=== PATIENT | female | born 2000 | race Caucasian/White ===

== ENCOUNTER 2021-10-10 04:42 | Inpatient (IN) | payer BC ==
[2021-10-10] MEDS ORDERED: Water For Irrigation,Sterile 1,000 ML Container IRR PRN (04:46)
[2021-10-10] MEDS ORDERED: Ondansetron 4 MG/2 ML SDV IVPUSH PRN (04:46)
[2021-10-10] MEDS ORDERED: Carboprost Tromethamine 250 MCG/1 ML Amp IM PRN (04:46)
[2021-10-10] MEDS ORDERED: Methylergonovine 0.2 MG/1 ML Amp IM PRN (04:46)
[2021-10-10] MEDS ORDERED: Sodium Chloride 0.9% 20 ML SDV IV PRN (04:46)
[2021-10-10] MEDS ORDERED: Sodium Chloride 0.9% 2.5 ML Syringe FLUSH PRN (04:46)
[2021-10-10] MEDS ORDERED: Misoprostol 200 MCG Tab PO PRN (04:46)
[2021-10-10] MEDS ORDERED: Terbutaline 1 MG/ML SDV SUBCUT PRN (04:46)
[2021-10-10] MEDS ORDERED: Sodium Chloride 0.9% 10 ML Syringe FLUSH PRN (04:46)
[2021-10-10] MEDS ORDERED: Lidocaine 1% 50 ML MDV INJECT PRN (04:46)
[2021-10-10] MEDS ORDERED: Tranexamic Acid 1,000 MG in Sodium Chloride 0.9% 100 ML IV PRN (04:46)
[2021-10-10] MEDS ORDERED: Butorphanol 1 MG/ML SDV IVPUSH PRN (04:46)
[2021-10-10] MEDS ORDERED: Oxytocin/0.9 % Sodium Chloride 30 UNIT/500 ML BAG IV SCH ×2 (05:00)
[2021-10-10] MEDS: Lactated Ringers 1,000 ML IV SCH ×2 (05:26→13:30)
[2021-10-10] MEDS ORDERED: ePHEDrine 50 MG/ML SDV IVPUSH PRN ×2 (07:36)
[2021-10-10] MEDS ORDERED: Ropivacaine HCl/PF 400 MG in Premix Bag 1 BAG EPIDUR SCH (07:45)
[2021-10-10] MEDS ORDERED: Acetaminophen 500 MG Tab PO PRN (21:33)
[2021-10-10] MEDS ORDERED: Bisacodyl 10 MG Supp RECTAL PRN (21:33)
[2021-10-10] MEDS ORDERED: oxyCODONE 5 MG Tab PO PRN (21:33)
[2021-10-10] MEDS ORDERED: Witch Hazel Medicated Pads 40/Jar TOP PRN (21:33)
[2021-10-10] MEDS ORDERED: Benzocaine/Menthol 20%-0.5% Spray 78 GM Cannister TOP PRN (21:33)
[2021-10-10] MEDS ORDERED: Docusate Sodium 100 MG Cap PO PRN (21:33)
[2021-10-10] MEDS ORDERED: Ibuprofen 400 MG Tab PO PRN (21:33)
[2021-10-10] MEDS ORDERED: Lanolin 100% Cream 7 GM Tube TOP PRN (21:33)
[2021-10-11] MEDS: Ibuprofen 800 MG Tab PO PRN ×2 (01:51→12:32)
[2021-10-11] MEDS ORDERED: Labetalol 100 MG Tab PO SCH (03:00)
[2021-10-11] MEDS: Acetaminophen 500 MG Tab PO PRN (04:06)
[2021-10-11 07:00] LABS: CARBON DIOXIDE,CO2 24.9 mmol/L (21.0-32.0)
[2021-10-12] MEDS: Acetaminophen 500 MG Tab PO PRN (03:34)
[2021-10-12] MEDS: Ibuprofen 800 MG Tab PO PRN (03:35)
== END 2021-10-12 20:39 | disposition home or self-care (01) | DRG 560 ==
LOC: MW.OBCHECK 04:42 → MW.OB 04:43 → MW.OBCHECK 04:46 → OBSVTOIN 20:45 → MW.OB 10-11 02:00
PROVIDERS: ADMIT Obstetrics & Gynecology; ATTEND Obstetrics & Gynecology
PROC: 10E0XZZ Delivery of Products of Conception, External Approach (ICD-10-PCS; principal; 2021-10-10)
PROC: 3E0R3BZ Introduction of Anesthetic Agent into Spinal Canal, Percutaneous Approach (ICD-10-PCS; 2021-10-10)
PROC: 00HU33Z Insertion of Infusion Device into Spinal Canal, Percutaneous Approach (ICD-10-PCS; 2021-10-10)
PROC: 0HQ9XZZ Repair Perineum Skin, External Approach (ICD-10-PCS; 2021-10-10)
PROC: 10907ZC Drainage of Amniotic Fluid, Therapeutic from Products of Conception, Via Natural or Artificial Opening (ICD-10-PCS; 2021-10-10)
DX: O13.4 Gestational [pregnancy-induced] hypertension without significant proteinuria, complicating childbirth (principal); Z3A.39 39 weeks gestation of pregnancy; Z37.0 Single live birth; O69.1XX0 Labor and delivery complicated by cord around neck, with compression, not applicable or unspecified; Z20.822 Contact with and (suspected) exposure to COVID-19
CPT/HCPCS: 01967; 36415; 51701; 59025; 59409; 80053; 82803; 85027; 86592; 86850; 86900; 86901; A9270-GY; J0595; J2590; J7120; U0002

== ENCOUNTER 2024-01-27 09:29 | Day surgery (SDC) | payer BC ==
[~2024-01-27 09:29] MED LIST: Albuterol 0.083% 2.5 MG/3 ML Neb Soln NEB PRN; HYDROmorphone 1 MG/ML Syringe IVPUSH PRN; Metoclopramide 10 MG/2 ML SDV IVPUSH PRN; Morphine 2 MG/ML SYRINGE IVPUSH PRN; Naloxone 0.4 MG/ML SDV IVPUSH PRN; Ondansetron 4 MG/2 ML SDV IVPUSH PRN; Phenylephrine HCl In 0.9% NaCl 1 MG/10 ML Syringe IVPUSH PRN; Sodium Chloride 0.9% 10 ML Syringe FLUSH PRN; Sodium Chloride 0.9% 2.5 ML Syringe FLUSH PRN; Sodium Chloride 0.9% 20 ML SDV IV PRN; fentaNYL 50 MCG/ML SDV IVPUSH PRN
[2024-01-27] MEDS: Lactated Ringers 1,000 ML IV SCH (10:10)
[2024-01-27] MEDS ORDERED: propofoL 50 ML ONE (10:57)
[2024-01-27] MEDS ORDERED: fentaNYL 100 MCG/2 ML SDV ONE (11:00)
[2024-01-27] MEDS ORDERED: dexmedeTOMIDine HCl 200 MCG/2 ML SDV ONE (11:00)
[2024-01-27] MEDS ORDERED: Ondansetron 4 MG/2 ML SDV ONE (11:24)
[2024-01-27] MEDS ORDERED: Dexamethasone 4 MG/ML 5 ML MDV ONE (11:24)
[2024-01-27] MEDS ORDERED: Ketorolac 30 MG/ML SDV ONE (11:35)
== END 2024-01-27 12:48 | disposition home or self-care (01) ==
LOC: MW.SDS 09:29
PROVIDERS: ATTEND Obstetrics & Gynecology
DX: O02.0 Blighted ovum and nonhydatidiform mole (principal); O13.1 Gestational [pregnancy-induced] hypertension without significant proteinuria, first trimester; Z3A.11 11 weeks gestation of pregnancy
CPT/HCPCS: 59820; J0131; J1100; J1885; J2405; J2704; J3010; J7120; J3490